=== PATIENT | male | born 1950 | race Caucasian/White ===

== ENCOUNTER 2017-11-01 12:46 | Observation (INO) | payer MEDICARE, BC ==
--- NOTE | 2017-11-01 13:27 | Emergency Department Record ---
History of Present Illness - General Chief Complaint: Choking Stated Complaint: FOOD STUCK IN THROAT Time Seen by Provider: 11/01/17 13:13 Source: Patient, Family Mode of Arrival: Ambulatory Limitations: No limitations - History of Present Illness Initial Comments: The patient is here due to swallowing a large piece of meat and having it get caught in his esophagus. He was eating Chop Suey about a half hour prior to presenting in the ER and felt a piece of meat become stuck in his esophagus. He was able to walk and had no SLOANE but could feel it stuck. The patient was not able to swallow his saliva and it kept coming up. He came to the ER and then slowly felt it go down his esophagus and now is back to normal. Presently there is no pain, discomfort, or FB sensation. He is able to drink water with no problems. Onset/Timin -: Minutes(s) Severity: Moderate Consistency: Constant Worsens With: Eating Context: Suspect foreign body Treatments Prior to Arrival: None - Related Data Home Oxygen Therapy: No Home Medications Medication Instructions Recorded Confirmed Last Taken Amlodipine Besylate [Norvasc] 5 mg PO DAILY 11/01/17 11/01/17 11/01/17 Aspirin [Adult Aspirin Regimen] 81 mg PO DAILY 11/01/17 11/01/17 11/01/17 Doxazosin Mesylate [Cardura] 1 mg PO DAILY 11/01/17 11/01/17 11/01/17 Losartan Potassium [Cozaar] 100 mg PO DAILY 11/01/17 11/01/17 11/01/17 [place]-3 Fatty Acids/Fish Oil [Fish 1,000 mg PO DAILY 11/01/17 11/01/17 11/01/17 Oil 1,000 mg Capsule] Rosuvastatin Calcium [Crestor] 10 mg PO DAILY 11/01/17 11/01/17 11/01/17 Allergies Allergy/AdvReac Type Severity Reaction Status Date / Time amoxicillin [From Amoxil] Allergy RASH Verified 11/01/17 13:03 atenolol Allergy PT UNSURE Verified 11/01/17 13:03 OF REACTION benzonatate Allergy HEADACHE Verified 11/01/17 13:03 [From Tessalon Perles] clonidine Allergy HEADACHE Verified 11/01/17 13:03 erythromycin base Allergy RASH Verified 11/01/17 13:03 [From Erythrocin] Travel Screening - Travel/Exposure Within Last 30 Days Have you traveled within the last 30 days?: No - Travel/Exposure Within Last Year Have you traveled outside the [place] in the last year?: No - Additonal Travel Details Have you been exposed to anyone with a communicable illness?: No - Travel Symptoms Symptom Screening: None Review of Systems Constitutional: Denies: Chills, Fever Eyes: Denies: Eye discharge ENT: Denies: Congestion Respiratory: Denies: Cough, Dyspnea Past Medical History - SOCIAL HISTORY Smoking Status: Never smoker Alcohol Use: None Drug Use: None - RESPIRATORY Hx Respiratory Disorders: No - CARDIOVASCULAR Hx Cardio Disorders: Yes Hx Hypertension: Yes - NEURO Hx Neuro Disorders: No - GI Hx GI Disorders: No - Hx Genitourinary Disorders: No - ENDOCRINE Hx Endocrine Disorders: No - MUSCULOSKELETAL Hx Musculoskeletal Disorders: No - PSYCH Hx Psych Problems: No - HEMATOLOGY/ONCOLOGY Hx Hematology/Oncology Disorders: No Family Medical History Any Significant Family History?: No Physical Exam - General General Appearance: Alert, Oriented x3, Cooperative, No acute distress - Head Head exam: Atraumatic, Normocephalic, Normal inspection - Eye Eye exam: Normal appearance, PERRL - ENT Throat exam: Normal inspection. negative: Tonsillar erythema, Tonsillar exudate - Neck Neck exam: Normal inspection, Full ROM. negative: Tenderness - Respiratory Respiratory exam: Normal lung sounds bilaterally. negative: Respiratory distress, Wheezes - Cardiovascular Cardiovascular Exam: Regular rate, Normal rhythm, Normal heart sounds - GI/Abdominal GI/Abdominal exam: Soft, Normal bowel sounds. negative: Tenderness - Extremities Extremities exam: Normal inspection, Full ROM, Normal capillary refill. negative: Tenderness - Neurological Neurological exam: Alert, Normal gait. negative: Abnormal gait, Motor sensory deficit Course Vital Signs 11/01/17 13:08 Temperature 98 F Pulse Rate 67 Respiratory 16 Rate Blood Pressure 152/82 Pulse Ox 98 - Reevaluation(s) Reevaluation #1: The patient is doing very well at this time. He is swallowing well with no difficulties or discomfort. 11/01/17 14:22 Reevaluation #2: I did discuss the patient's issues with Shea in the [facility] office and she did find records to indicate the patient has exercise induced LBBB and has had it on a stress test in the past. Due to that fact I did recommend a short stay admission to be certain to R/O UT with the patient. The patient clearly did have a FB stuck in his esophagus when this all started and did have a little diaphoresis with it. The symptoms completely resolved when the FB resolved. The patient has had no CP or SOB similar to his cardiac issues. Because of the LBBB is present I do feel the prudent course of action is to monitor him overnight to be sure he does not rule in for an UT. 11/01/17 15:05 11/01/17 15:47 Reevaluation #3: 2nd EKG: NSR with LBBB, No change from first. 11/01/17 15:46 Reevaluation #4: I did discuss the case with Dr. Adams for [facility] and he does feel it is OK for the patient to stay here at [facility]. I then did discuss the case with Alia ([employer]) and she does accept the case for Dr. De Santiago. 11/01/17 15:55 Medical Decision Making - Data Complexity MDM Data: Labs Ordered and/or Reviewed, X-Ray Ordered and/or Reviewed, EKG Ordered and/or Reviewed - Lab Data Result diagrams: 11/01/17 13:15 11/01/17 13:15 - EKG Data -: EKG Interpreted by Me EKG: Abnormal EKG (LBBB.) - Radiology Data Radiology results: Report reviewed (CXR: Neg.) Disposition Disposition: Discharge Clinical Impression: LBBB (left bundle branch block) Disposition: Home, Self-Care Condition: (2) Stable Time of Disposition: 15:57 Quality - Quality Measures Quality Measures: N/A - Blood Pressure Screening View Details: Yes Does Patient Have Any of the Following: Active Dx of HTN Blood Pressure Classification: Hypertensive Reading Systolic Measurement: 145 Diastolic Measurement: 74 Screening for High Blood Pressure: Patient Exclusion, Hx of HTN [G9744]
[2017-11-01 14:45] LABS: BASO % 0.2 % (0-6); EOS % 3.8 % (0-6); GRAN % 44.5 % (47-80); HEMATOCRIT 47.1 % (42.0-52.0); MEAN CELL VOLUME 87.5 fl (81-97); MEAN CORPUSCULAR HEMOGLOBIN 29.7 pg (27-33); MEAN PLATELET VOLUME 10.9 fl (7.4-10.4); MONO % 5.5 % (0-9); PLATELET COUNT 258 K/uL (130-400); RED BLOOD COUNT 5.38 M/uL (4.40-5.70); RED CELL DISTRIBUTION WIDTH 13.7 % (11.5-14.5); WHITE BLOOD COUNT W/O DIFF 11.3 K/uL (4.2-12.2)
[2017-11-01 14:54] LABS: BLOOD UREA NITROGEN 18 mg/dL (8-23); CREATININE 0.7 mg/dL (0.7-1.2); EST GLOMERULAR FILTRATION RATE > 60 mL/min
[2017-11-01 14:57] LABS: GLUCOSE,RANDOM 175 mg/dL (74-109)
[2017-11-01 15:00] LABS: CREATINE PHOSPHOKINASE 325 U/L (39-308)
[2017-11-01] MEDS ORDERED: POTASSIUM CHLORIDE 20 MEQ TABLET PO ONE (15:05)
[2017-11-01] MEDS ORDERED: ASPIRIN 325 MG TAB ENTERIC-COATED PO SCH (17:49)
--- NOTE | 2017-11-01 18:14 | History & Physical ---
History of Present Illness - Date of Service Date of Service for History & Physical: 11/01/17 - History of Present Illness Admitting Diagnosis: 1. New Onset LBBB. History of Present Illness: 67 yo male admitted for new LBBB found after choking incident. PM STENT x2 10 yrs ago with failed stress test, DM controlled with diet, HTN and hyperlipidemia. Pt reports recent issues with difficulty swallowing for the past several months, has not been seen previous for this. Pt reports eating chop suey, choked on a piece of meat and king pepper. Came into ER, was seen by GI but was eventually able to swallow the food bolus. After this incident, er completed EKG, finding new LBBB. 98F, HR 67, BP 152/82, RR 16, 98% RA. WBC 11.3, Hgb 16, Hct 47.1, Plt 258 NA 144, K 3.2, CL 99, CO2 27, BUN 18, creatinine 0.7, GFR >60, glucose 175, CK 325, CK-MB 6, trop <0.010 CXR reviewed, negative per audio clip POC: Per DR Gann, [facility] contacted and instructed to have pt remain at [facility] for ACS r/o with serial trop and EKG. If negative, follow up with Dr Estrada output. Serial trop, CK-MB, EKG, repeat BMP Pt given 20mEq supp for low K. D/C AM if negative, f/u PCP and GI for EGD r/t diff swallowing. PCP Ramona Specialist [facility] cardiology Travel Screening - Travel/Exposure Within Last 30 Days Have you traveled within the last 30 days?: No - Travel/Exposure Within Last Year Have you traveled outside the [place] in the last year?: No - Additonal Travel Details Have you been exposed to anyone with a communicable illness?: No - Travel Symptoms Symptom Screening: None Review of Systems Constitutional: Denies: Chills, Fever Eyes: Denies: Eye discharge ENT: Denies: Congestion Respiratory: Denies: Cough, Dyspnea Cardiovascular: Denies: Chest pain, Dyspnea on exertion, Edema Endocrine: Denies: Fatigue Gastrointestinal: Denies: Abdominal pain Skin: Denies: Bruising Neurological: Denies: Abnormal gait Hematological/Lymphatic: Denies: Anemia Past Medical History - SOCIAL HISTORY Smoking Status: Never smoker Alcohol Use: None Drug Use: None - RESPIRATORY Hx Respiratory Disorders: No - CARDIOVASCULAR Hx Cardio Disorders: Yes Hx Hypertension: Yes - NEURO Hx Neuro Disorders: No - GI Hx GI Disorders: No - Hx Genitourinary Disorders: No - ENDOCRINE Hx Endocrine Disorders: No - MUSCULOSKELETAL Hx Musculoskeletal Disorders: No - PSYCH Hx Psych Problems: No - HEMATOLOGY/ONCOLOGY Hx Hematology/Oncology Disorders: No Family Medical History Any Significant Family History?: Yes Hx Diabetes: Mother Hx Heart Disease: Father Hx HTN: Father, Mother H&P Meds/Allergies - Allergies Allergies: Allergies Allergy/AdvReac Type Severity Reaction Status Date / Time amoxicillin [From Amoxil] Allergy RASH Verified 11/01/17 13:03 atenolol Allergy PT UNSURE Verified 11/01/17 13:03 OF REACTION benzonatate Allergy HEADACHE Verified 11/01/17 13:03 [From Tessalon Perles] clonidine Allergy HEADACHE Verified 11/01/17 13:03 erythromycin base Allergy RASH Verified 11/01/17 13:03 [From Erythrocin] - Home Medications Home Medications Medication Instructions Recorded Confirmed Last Taken Amlodipine Besylate [Norvasc] 5 mg PO DAILY 11/01/17 11/01/17 11/01/17 Aspirin [Adult Aspirin Regimen] 81 mg PO DAILY 11/01/17 11/01/17 11/01/17 Doxazosin Mesylate [Cardura] 1 mg PO DAILY 11/01/17 11/01/17 11/01/17 Losartan Potassium [Cozaar] 100 mg PO DAILY 11/01/17 11/01/17 11/01/17 [place]-3 Fatty Acids/Fish Oil [Fish 1,000 mg PO DAILY 11/01/17 11/01/17 11/01/17 Oil 1,000 mg Capsule] Rosuvastatin Calcium [Crestor] 10 mg PO DAILY 11/01/17 11/01/17 11/01/17 - Active Medications Active Medications: Current Medications Amlodipine Besylate (Norvasc) 5 mg PO DAILY [facility] Aspirin (Ecotrin (Ec)) 325 mg PO DAILY [facility] Losartan Potassium (Losartan Potassium) 100 mg PO DAILY [facility] Non-Formulary Medication (Doxazosin Mesylate [Cardura]) 1 mg PO DAILY [facility] Non-Formulary Medication ([place]-3 Fatty Acids/Fish Oil [Fish Oil 1,000 Mg Capsule]) 1,000 mg PO DAILY [facility] Non-Formulary Medication (Rosuvastatin Calcium [Crestor]) 10 mg PO DAILY [facility] Physical Exam - Vital Signs Vital Signs: Vital Signs - Last 24 Hrs Temp Pulse Resp BP Pulse Ox 11/01/17 17:21 98.1 F 63 18 145/74 95 11/01/17 13:08 98 F 67 16 152/82 98 - General General Appearance: Alert, Oriented x3, Cooperative, No acute distress Limitations: No limitations - Head Head exam: Atraumatic, Normocephalic, Normal inspection - Eye Eye exam: Normal appearance, PERRL - ENT ENT exam: Normal exam Ear exam: Normal external inspection Mouth exam: Normal external inspection Teeth exam: Normal inspection Throat exam: Normal inspection. negative: Tonsillar erythema, Tonsillar exudate - Neck Neck exam: Normal inspection, Full ROM. negative: Tenderness - Respiratory Respiratory exam: Normal lung sounds bilaterally. negative: Respiratory distress, Wheezes - Cardiovascular Cardiovascular Exam: Regular rate, Normal rhythm, Normal heart sounds Peripheral Pulses: 2+: Radial (R), Radial (L), Dorsalis Pedis (R), Dorsalis Pedis (L) - GI/Abdominal GI/Abdominal exam: Soft, Normal bowel sounds. negative: Tenderness - Rectal Rectal exam: Deferred - exam: Deferred - Extremities Extremities exam: Normal inspection, Full ROM, Normal capillary refill. negative: Tenderness - Back Back exam: Reports: Normal inspection - Neurological Neurological exam: Alert, Normal gait. negative: Abnormal gait, Motor sensory deficit - Psychiatric Psychiatric exam: Normal affect, Normal mood - Skin Skin exam: Dry, Intact, Warm Results - Labs Result Diagrams: 11/01/17 13:15 11/01/17 13:15 Labs Last 24 Hours: Laboratory Results - last 24 hr 11/01/17 11/01/17 13:15 13:15 WBC 11.3 RBC 5.38 Hgb 16.0 Hct 47.1 MCV 87.5 MCH 29.7 MCHC 34.0 RDW 13.7 Plt Count 258 MPV 10.9 H Gran % 44.5 L Lymphocytes % 46.0 H Monocytes % 5.5 Eosinophils % 3.8 Basophils % 0.2 Sodium 144 Potassium 3.2 L Chloride 99 Carbon Dioxide 27.0 Anion Gap 18.0 H BUN 18 Creatinine 0.7 Estimated GFR > 60 Random Glucose 175 H Calcium 9.1 Creatine Kinase 325 H CK-MB (CK-2) 6.0 Troponin T < 0.010 - Imaging and Cardiology Chest x-ray Status: Report reviewed (audio clip reviewed) VTE H&P Assessment - Risk for VTE Risk for VTE: Yes Risk Level: Moderate Risk Assessment Date: 11/01/17 Risk Assessment Time: 18:26 VTE Orders Placed or Will Be Placed: Yes Plan - Detailed Diagnosis and Plan (1) LBBB (left bundle branch block) Current Visit: Yes Status: Acute Base Code: I44.7 - LEFT BUNDLE-BRANCH BLOCK , UNSPECIFIED Comment: 11/01/17 -serial trop, EKG, CK-MB -cont court recording monitor -VS q4 hrs -outpt [facility] f/u
[2017-11-01 21:41] LABS: CKMB 4.3 ng/mL (<6.73)
[2017-11-02 07:46] LABS: BLOOD UREA NITROGEN 13 mg/dL (8-23); CREATININE 0.7 mg/dL (0.7-1.2); EST GLOMERULAR FILTRATION RATE > 60 mL/min; GLUCOSE,RANDOM 110 mg/dL (74-109)
[2017-11-02 07:55] LABS: CKMB 3.4 ng/mL (<6.73)
--- NOTE | 2017-11-02 09:42 | Discharge Summary ---
Providers Discharge Summary Date: 11/02/17 Date of admission: 11/01/17 17:21 Expected Date of Discharge: 11/02/17 Attending physician: ANI BAEZ Primary care physician: REA PACE D.O. Consults: Consult Orders 11/01/17 14:23 Consult NOW Consulting Provider: PAULETTE SHERIDAN Physician Instructions: Needs EGD. Reason For Exam: esophageal FB Pt as seen in ER, FB passed without intervention. pt needs F/U outpt with GI through PCP Physical Exam - Vital Signs Vital Signs: Vital Signs - Last 24 Hrs Temp Pulse Pulse Resp BP BP BP 11/02/17 08:25 97.6 F 56 L 18 166/81 175/77 11/02/17 05:00 98.1 F 55 L 18 169/81 11/01/17 21:30 98.8 F 51 L 18 143/73 11/01/17 17:30 97.8 F 55 L 18 147/72 11/01/17 17:21 98.1 F 63 18 145/74 11/01/17 13:08 98 F 67 16 152/82 Pulse Ox 11/02/17 08:25 96 11/02/17 05:00 98 11/01/17 21:30 97 11/01/17 17:30 97 11/01/17 17:21 95 11/01/17 13:08 98 - General General Appearance: Alert, Oriented x3, Cooperative, No acute distress Limitations: No limitations - Head Head exam: Atraumatic, Normocephalic, Normal inspection - Eye Eye exam: Normal appearance, PERRL - ENT ENT exam: Normal exam Ear exam: Normal external inspection Mouth exam: Normal external inspection Teeth exam: Normal inspection Throat exam: Normal inspection. negative: Tonsillar erythema, Tonsillar exudate - Neck Neck exam: Normal inspection, Full ROM. negative: Tenderness - Respiratory Respiratory exam: Normal lung sounds bilaterally. negative: Respiratory distress, Wheezes - Cardiovascular Cardiovascular Exam: Regular rate, Normal rhythm, Normal heart sounds Peripheral Pulses: 2+: Radial (R), Radial (L), Dorsalis Pedis (R), Dorsalis Pedis (L) - GI/Abdominal GI/Abdominal exam: Soft, Normal bowel sounds. negative: Tenderness - Rectal Rectal exam: Deferred - exam: Deferred - Extremities Extremities exam: Normal inspection, Full ROM, Normal capillary refill. negative: Tenderness - Back Back exam: Reports: Normal inspection - Neurological Neurological exam: Alert, Normal gait. negative: Abnormal gait, Motor sensory deficit - Psychiatric Psychiatric exam: Normal affect, Normal mood - Skin Skin exam: Dry, Intact, Warm Hospitalization - Hospitalization Admission Diagnosis: 1. New Onset LBBB. - Problem List/Discharge Diagnosis (1) LBBB (left bundle branch block) Current Visit: Yes Status: Acute Base Code: I44.7 - LEFT BUNDLE-BRANCH BLOCK , UNSPECIFIED Comment: 11/01/17 -serial trop, EKG, CK-MB -cont primary care md -VS q4 hrs -outpt [facility] f/u 11/02/17 -cardiac enzymes negative -pt denies CP -VSS -d/c today, f/u with [facility] and PCP (2) Swallowing difficulty Current Visit: Yes Status: Acute Base Code: R13.10 - DYSPHAGIA, UNSPECIFIED Comment: 11/01/17 -pt reports eating chop suey, choked on piece of meat and pepper -food bolus was stuck when pt presented to ER, GI consulted but the food bolus passed without intervention -symptoms have resolved 11/02/17 -pt needs to see PCP and have outpt GI consult and EGD -reports choking on food before this event, more recent issues within the last several months - Disposition You have an appintment with [facility] You have a follow up appointment with your PCP Dr Pace, at that appointment, you need to get them to proceed with a GI consult for your recent swallowing issues. You will probably need and EGD (upper scope) to check your throat and stomach. Eat smaller bites of food, chew well, do not talk or do other activities while eating. Go to ER for any choking or food stuck in your throat. Go to ER for any Chest pain, shortness of breath, or difficulty breathing. - Hospitalization Course Disposition: Home, Self-Care Hospital Course: 67 yo male admitted for new LBBB found after choking incident. PM STENT x2 10 yrs ago with failed stress test, DM controlled with diet, HTN and hyperlipidemia. Pt reports recent issues with difficulty swallowing for the past several months, has not been seen previous for this. Pt reports eating chop suey, choked on a piece of meat and king pepper. Came into ER, was seen by GI but was eventually able to swallow the food bolus. After this incident, er completed EKG, finding new LBBB. 98F, HR 67, BP 152/82, RR 16, 98% RA. WBC 11.3, Hgb 16, Hct 47.1, Plt 258 NA 144, K 3.2, CL 99, CO2 27, BUN 18, creatinine 0.7, GFR >60, glucose 175, CK 325, CK-MB 6, trop <0.010 CXR reviewed, negative per audio clip POC: Per DR Gann, [facility] contacted and instructed to have pt remain at [facility] for ACS r/o with serial trop and EKG. If negative, follow up with Dr Estrada output. Serial trop, CK-MB, EKG, repeat BMP Pt given 20mEq supp for low K. D/C AM if negative, f/u PCP and GI for EGD r/t diff swallowing. PCP Ramona Specialist [facility] cardiology Procedures: Imaging and X-Rays 11/01/17 13:13 CHEST 2 VIEWS [RAD] Stat Cardiology Procedures 11/01/17 13:13 EKG NOW 11/01/17 15:08 EKG NOW 11/01/17 17:49 Paper Cone Maker .Continuous EKG QDX2@0600 Abnormal Labs: Abnormal Lab Results 11/01/17 11/01/17 11/02/17 Range/Units 13:15 13:15 06: MPV 10.9 H (7.4-10.4) fl Gran % 44.5 L (47-80) % Lymphocytes % 46.0 H (16-45) % Potassium 3.2 L (3.4-4.5) mmol/L Anion Gap 18.0 H (7-16) Random Glucose 175 H 110 H (74-109) mg/dL Calcium 8.6 L (8.8-10.2) mg/dL Creatine Kinase 325 H (39-308) U/L Condition at Discharge: (2) Stable Discharge Diagnosis: new onset LBBB Discharge Medications - Discharge Medications Home Medications: Ambulatory Orders Amlodipine Besylate [Norvasc] 5 mg PO DAILY 11/01/17 [Last Taken 11/01/17] Aspirin [Adult Aspirin Regimen] 81 mg PO DAILY 11/01/17 [Last Taken 11/01/17] Doxazosin Mesylate [Cardura] 1 mg PO DAILY 11/01/17 [Last Taken 11/01/17] Losartan Potassium [Cozaar] 100 mg PO DAILY 11/01/17 [Last Taken 11/01/17] [place]-3 Fatty Acids/Fish Oil [Fish Oil 1,000 mg Capsule] 1,000 mg PO DAILY 11/01 [Last Taken 11/01/17] Rosuvastatin Calcium [Crestor] 10 mg PO DAILY 11/01/17 [Last Taken 11/01/17] Discharge Plan - Discharge Instructions Activity at Discharge: Increase Activity as Tolerated Diet at Discharge: Low Fat, Low Cholesterol, Low Salt Diet Instructions: Chest Pain (ED) Additional Instructions: Appointment with Dr. Block's PA, Jaymie, at [facility] in [place] Thursday 11/16 at 11: 00AM. Appointment with Dr. Pace Sunday, 11/26 at 11:00AM. Quality Measures - Quality Measures Quality Measures: Advance Directives, Documentation of Current Medications in Medical Record, Elder Maltreatment Screen and Follow-Up Plan, Screening for High Blood Pressure and F/U Documented - Current Medications Quality Measure: Measure #130: Documentation of Current Medications Documentation of Current Medications: <Current Medications Documented/Reviewed> [C6450] - Blood Pressure Screening Quality Measure: Screening for High Blood Pressure and Follow-Up Documented Does Patient Have Any of the Following: Active Dx of HTN Blood Pressure Classification: Hypertensive Reading Systolic Measurement: 145 Diastolic Measurement: 74 Screening for High Blood Pressure: Patient Exclusion, Hx of HTN [G9744] - Advance Directives Quality Measure: Measure #47: Care Plan Advance Directives Established: No Advance Directives Information Provided To Patient: Yes Advance Directives on File: No Living Will: No Power of Polishing Pad Mounter: No Advance Care Planning: <Care Plan/Decision Maker Not Decided; Discussed & Documented> [[id number]] - Elder Abuse Suspicion Index Screening: Elder Abuse Suspicion Index Screening Rely on people for bathing, dressing, shopping, banking, etc: No Prevented from getting food, clothes, medication, etc: No Made to feel shamed or threatened by someone: No Forced to sign papers or use money against will: No Feel afraid, touched in ways not wanted or hurt physically: No Poor eye contact, withdrawn, malnourished, cuts or bruises: No Screening Result: Negative result EASI Reference Information: Yaffe MJ, Robson C, Mando D, Nabeel Melvin.Development and validation of a tool to assist physicians identification of elder abuse: The Elder Abuse Suspicion Index (EASI ). Journal of Elder Abuse and Neglect, 2008; 20 (3): 276-300. - Elder Maltreatment Screen Quality Measures: Elder Maltreatment Screen and Follow-Up Plan Elder Maltreatment Screen: <Negative, No Follow-Up Plan Required> [[id number]]
[2017-11-02] MEDS ORDERED: OMEGA PO SCH (10:00)
[2017-11-02] MEDS ORDERED: AMLODIPINE BESYLATE 5MG TAB PO SCH (10:00)
[2017-11-02] MEDS ORDERED: FISH OIL PO SCH (10:00)
[2017-11-02] MEDS ORDERED: LOSARTAN POTASSIUM 100 MG TABLET PO SCH (10:00)
[2017-11-02] MEDS ORDERED: ATORVASTATIN 20 MG TABLET PO SCH (10:00)
[2017-11-02] MEDS ORDERED: FATTY ACIDS PO SCH (10:00)
[2017-11-02] MEDS ORDERED: ENOXAPARIN 40 MG/0.4 ML SYR SQ SCH (10:00)
[2017-11-02] MEDS ORDERED: DOXAZOSIN MESYLATE 2 MG TABLET PO SCH (10:00)
--- NOTE | 2017-11-04 15:07 | RADIOLOGY REPORT ---
EXAM: CHEST 2 VIEWS HISTORY: DIFFICULTY IN BREATHING. TECHNIQUE: Frontal and lateral views of the chest were performed. COMPARISON: None. FINDINGS: Heart size normal. No pulmonary vascular congestion. Tortuous thoracic aorta. No infiltrate or pleural effusion. Mild degenerative change of the thoracic spine. IMPRESSION: NO ACUTE PULMONARY DISEASE PROCESS. JOB NUMBER: [id number] MTDD
== END 2017-11-02 11:01 | disposition home or self-care (01) ==
LOC: ER 12:46 → MEDSURG 17:21
PROVIDERS: ADMIT Internal Medicine; ATTEND Internal Medicine
DX: R09.89 Other specified symptoms and signs involving the circulatory and respiratory systems (principal); T18.128A Food in esophagus causing other injury, initial encounter; I45.4 Nonspecific intraventricular block; E11.9 Type 2 diabetes mellitus without complications; I10 Essential (primary) hypertension; E78.5 Hyperlipidemia, unspecified
CPT/HCPCS: 93041; 99285 ×2; 82550; 85025; 82553 ×2; 80048 ×2; 84484 ×2; 71046; 93005 ×2; 93010; G0378 ×2; 99217; 99220